=== PATIENT | female | born 1950 | race Caucasian/White ===

== ENCOUNTER → 2018-03-02 | Outpatient (CLI) | payer MEDICARE, OTHER ==
--- NOTE | 2018-03-02 11:54 | Diagnostic Imaging Report ---
PROCEDURE:ABDOMINAL ULTRASOUND COMPARISON:None. INDICATIONS: abdomen pain TECHNIQUE: Transverse and longitudinal images of the upper abdomen were obtained. FINDINGS: Liver: Size: Measures 13.2 cm in the right midclavicular line, normal Appearance: Normal echogenicity, smooth contour Mass: No focal masses Spleen: Size: 9.2 cm in length, normal Echogenicity: Normal Mass: No focal masses Gallbladder: Stones/Sludge: None Appearance: No wall thickening, pericholecystic fluid or hydrops. Sonographic Gutiérrez's Sign: Negative Bile Ducts: Intrahepatic Ducts: No dilatation Extrahepatic Ducts: Common bile duct measures 0.5 cm, no dilatation Pancreas: Visualized portions of the neck and proximal body are normal. Right Kidney: Size: 10.9 cm Echogenicity: Normal Collecting System: No hydronephrosis Stone: None Cyst/Mass: None Left Kidney: Size: 8.9 cm Echogenicity: Normal Collecting System: No hydronephrosis Stone: None Cyst/Mass: None Vessels: Aorta: Visualized portions are normal Inferior Vena Cava: Visualized portions and normal Main Portal Vein: 0.8 cm, normal size with hepatopetal flow. Free Fluid: No ascites. IMPRESSION: Normal abdominal ultrasound. Dictated by: VIRGINIA PEREZ M.D. on 03/02/2018 at 12:03 Electronically approved by: VIRGINIA PEREZ M.D. on 03/02/2018 at 12:03
--- NOTE | 2018-03-02 11:56 | Diagnostic Imaging Report ---
PROCEDURE:PELVIC ULTRASOUND COMPARISON:None. INDICATIONS:pelvic pain TECHNIQUE: Grayscale transverse and sagittal transabdominal images were obtained of the pelvis. FINDINGS: UTERUS: Status post hysterectomy. RIGHT OVARY: Not visualized. LEFT OVARY: Not visualized There is no free fluid within the pelvis. No adnexal masses. The bladder is decompressed. CONCLUSION: Status post hysterectomy. Both ovaries are not visualized, and the patient states she is unsure if the ovaries were surgically removed. No free fluid in the pelvis. Dictated by: VIRGINIA PEREZ M.D. on 03/02/2018 at 12:05 Electronically approved by: VIRGINIA PEREZ M.D. on 03/02/2018 at 12:05
== END ==
LOC: US 08:53
PROVIDERS: ATTEND Family Medicine
DX: N39.0 Urinary tract infection, site not specified (principal); R10.84 Generalized abdominal pain
CPT/HCPCS: 76700; 76856

== ENCOUNTER → 2018-03-12 | Outpatient (CLI) | payer MEDICARE, OTHER ==
[~2018-03-12] MED LIST: DIATRIZOATE MEGL/DIATRIZOA SOD 30 ML BTL PO ONE; IOPAMIDOL 370 MG/ML 200 ML INFUS..BTL INJ ONE; SODIUM CHLORIDE 0.9% 50ML 50 ML ONE
--- NOTE | 2018-03-12 15:53 | Diagnostic Imaging Report ---
EXAM: CT Abdomen and Pelvis WITHOUT contrast INDICATION: ^RIGHT QUADRANT ABDOMINAL PAIN COMPARISON: None. TECHNIQUE: Abdomen and pelvis were scanned utilizing a multidetector helical scanner from the lung base to the pubic symphysis without administration of IV contrast. Absence of intravenous contrast decreases sensitivity for detection of focal lesions and vascular pathology. Coronal and sagittal reformations were obtained. Routine protocol was performed. IV CONTRAST: None. ORAL CONTRAST: Gastrografin RADIATION DOSE: Total DLP: 470.5 mGy*cm Estimated effective dose: (DLP x 0.015 x size factor) mSv COMPLICATIONS: None FINDINGS: LINES and TUBES: None. LOWER THORAX: Unremarkable HEPATOBILIARY: No focal hepatic lesions. No biliary ductal dilation. GALLBLADDER: No radio-opaque stones or sludge. No wall thickening. SPLEEN: No splenomegaly. PANCREAS: No focal masses or ductal dilatation. ADRENALS: No adrenal nodules KIDNEYS/URETERS: No hydronephrosis. No cystic or solid mass lesions. No stones. GI TRACT: No abnormal distention, wall thickening, or evidence of bowel obstruction. Diffuse diverticulosis throughout the colon without diverticulitis, worse in the transverse (right upper quadrant) and sigmoid colon (left lower quadrant). Appendix is not visualized. PELVIC ORGANS/BLADDER: Unremarkable. LYMPH NODES: No lymphadenopathy. VESSELS: Unremarkable. PERITONEUM / RETROPERITONEUM: No free air or fluid. BONES: Unremarkable. SOFT TISSUES: Bilateral breast implants. IMPRESSION: Diffuse diverticulosis throughout the colon, worse in the right upper and left lower quadrants. No diverticulitis. Signed by: Dr. Malissa Call M.D. on 03/12/2018 3:50 PM
== END ==
LOC: CT 13:16
PROVIDERS: ATTEND Family Medicine
DX: R10.84 Generalized abdominal pain (principal)
CPT/HCPCS: 74176; Q9663; Q9967